=== PATIENT | female | born 1950 | race Caucasian/White ===

== ENCOUNTER → 2017-05-11 | Outpatient (CLI) | payer MEDICARE, BC ==
[~2017-05-11] MED LIST: ASPIRIN E.C. 8181 MG PO; CALCIUM 600MG+D1 TAB PO; CALCIUM600 M1 PO; CARDI-OMEGA1000 MG PO; FISH OIL1000 MG PO; FOLIC ACID 40400 MCG PO; GLUCOSAMINE MSM1 TAB PO; IRON65 M1 PO; LODINE 300300 MG/CAP PO; LUTEIN20 M1 PO; MULTIVITAMIN FO1 CAP PO; NORCO 325 MG-7.1 TAB PO; PRINZIDE 12.5 M1 TA1 PO; ROSE HIP PO; ROXICODONE 55 MG/TAB PO; VITAMIN B121000 MC2 SL; VITAMIN B122500 MCG SL; VITAMIN C PUR1000 MG PO; VITAMIN D31000 IU PO; VITAMINC1000TA PO; XARELTO10 MG PO
== END ==
LOC: COL.PUL 07:41
DX: C34.31 Malignant neoplasm of lower lobe, right bronchus or lung (principal)

== ENCOUNTER → 2018-08-01 | Outpatient (CLI) | payer MEDICARE, BC | LOC: COL.RAD 10:56 | DX: E04.1 Nontoxic single thyroid nodule (principal) ==

== ENCOUNTER 2023-01-18 07:04 | Day surgery (SDC) | payer MEDICARE, BC ==
[2023-01-18] VITALS (16 sets, daily range): BP systolic 87–135; BP diastolic 50–86; PULSE 78–106; TEMP 97.6–98.3
[~2023-01-18] VITALS: Ht 172.7 cm; Wt 89.6 kg
[2023-01-18] MEDS ORDERED: INVIGOFLEX D1500 MG PO (08:58)
[2023-01-18] MEDS ORDERED: LIPITOR20 MG PO (08:59)
[2023-01-18] MEDS ORDERED: VOLTAREN 50MG T50 MG PO (09:01)
[2023-01-18] MEDS ORDERED: PRINIVIL5 MG PO (09:01)
[2023-01-18] MEDS ORDERED: GLUCOSAMIN 500 PO (09:05)
[2023-01-18] MEDS ORDERED: PHARMASSURE ZIN50 MG PO (09:08)
[2023-01-18] MEDS ORDERED: MASON NATURAL2000 IU PO (09:08)
[2023-01-18] MEDS ORDERED: CALCIUM 600MG+D1 TAB PO (09:09)
[2023-01-18] MEDS ORDERED: THE MEDICINE S200 M2 PO (09:10)
[2023-01-18] MEDS ORDERED: B-121000 MCG PO (09:10)
[2023-01-18] MEDS ORDERED: ZYRTEC 10MG10 MG PO (09:10)
[2023-01-18] MEDS ORDERED: GLUCOSAMINE & C1 CA2 (09:14)
[2023-01-18] MEDS ORDERED: GLUCOSAMINE/CHO1 CA4 PO (09:14)
--- NOTE | 2023-01-18 09:17 | NUR ---
PATIENT AMBULATED TO BAY 2 AT 0732. ALERT AND ORIENTED X4. PATIENT STATED UNDERSTANDING OF PROCEDURE. CONSENTS SIGNED. ASSESSMENT COMPLETED. 18G IV STARTED BY SANAM ORO IN LEFT WRIST. LR INFUSING WITHOUT DIFFICUTLTIES. WARM BLANKET PROVIDED. NO FURTHER NEEDS NOTED AT THIS TIME. RESTING IN COT. CALL LIGHT IN REACH. AT BEDSIDE.
--- NOTE | 2023-01-18 13:22 | NUR ---
Patient arrived to the unit from pacu to room 331 alert and oriented. Lungs CTA, Bowel sound hypoactive. Pulses presents, patient does not feel sensation and moves legs as of yet. Cap refill brisk, Dressing with laura wrap to the right knee intact. No drainage noted. Patient oriented to the room and the use of call ballesteros for help. Family at the bedside. Call ballesteros in reach.
--- NOTE | 2023-01-18 15:03 | NUR ---
Patient has a soft B/P o f 87/50, denies lightheadedness, shortness of breath. IVF NS initiated by Doctor's orders at 100ml/hr.
--- NOTE | 2023-01-18 15:24 | NUR ---
Repiratory therapist Margaret notified of orders for incentive spirometer use and states she will bring one for patient.
--- NOTE | 2023-01-18 18:07 | NUR ---
Patient sitting in bed eating dinner, no issues with n/v. Patient states she's started having some sensation at bilateral lower extremities. Patient denies pain at this time.
--- NOTE | 2023-01-18 18:51 | NUR ---
Patient assisted to the bathroom to void. Patient tolerated it well and currently sitting at the edge of the bed placing puzzle. Patient denies pain at this time.
--- NOTE | 2023-01-18 20:45 | NUR ---
PT AMBULATING HALLS WITH X1 ASSIST
--- NOTE | 2023-01-18 21:00 | NUR ---
PT A&O X4 LAYING IN BED. VSS. DENYING ANY PAIN OR N/V. DRESSING & ACEWRAP TO RIGHT KNEE CDI. HEMOVAC TO COMPRESSION WITH BLOODY OUTPUT. IVF INFUSING TO LEFT WRIST. BED LOWERED & CALL LIGHT IN REACH. DENYING FURTHER NEEDS.
[2023-01-19 03:28] VITALS: BP 104/63; PULSE 100; TEMP 98.2
[2023-01-19 03:37] VITALS: BP_SYST 104
[2023-01-19 05:35] LABS: HEMOGLOBIN 12.4 g/dl (12.5-16.0)
[2023-01-19 05:57] LABS: CALCIUM 8.7 mg/dL (8.4-10.2); CREATININE, serum 0.69 mg/dL (0.57-1.11); POTASSIUM 4.5 mmol/L (3.5-4.5)
[2023-01-19 07:25] VITALS: BP 102/56; PULSE 92; TEMP 97.9
--- NOTE | 2023-01-19 08:29 | NUR ---
PT EATING BREAKFAST, VSS, LUNGS CTA, BOWEL SOUNDS PRESENT DRESSINGS TO RIGHT KNEE CDI. PT DENIES PAIN OR NEEDS AT THIS TIME.
[2023-01-19 09:11] VITALS: BP_SYST 102
--- NOTE | 2023-01-19 09:30 | NUR ---
Initial visit; Patient thanked [employer] for stopping though declined Spiritual Care stating she has a Jew home who are praying for her. [employer] Operator wished her well.
--- NOTE | 2023-01-19 10:15 | NUR ---
Tilesetter met with Patient at bedside to conduct Care Managment Assessment and discuss discharge planning. Patient lives with her in [place], [place] and is established with PCP Dr. Weems. Jero is covered by [facility] and [facility] for insurance an requests discharge medications be sent to [facility]. Patient denies the use of DME prior to admission and reports that she has OP PT scheduled at [facility]. Patient states that her DPOSHC is her . Discahrge Plan: Home with OP PT.
[2023-01-19 11:10] VITALS: BP 115/62; PULSE 94; TEMP 98.2
--- NOTE | 2023-01-19 12:42 | NUR ---
Received consult for malnutrition however per review of notes and discussion with RN, believe consult to be received in error. Patient does not appear to be at risk for malnutrition at this time.
[2023-01-19 13:01] VITALS: BP_SYST 115
[2023-01-19] MEDS ORDERED: CEPHALEXIN500 M1 PO (14:00)
[2023-01-19] MEDS ORDERED: PERCOCET 325 MG1 TA2 PO (14:00)
--- NOTE | 2023-01-19 15:34 | NUR ---
DISCHARGE INSTRUCTIONS REVIEWED WITH PT AND , QUESTIONS ANSWERED, PT LEFT UNIT PER WHEEL CHAIR.
== END 2023-01-19 15:35 | disposition home or self-care (01) ==
LOC: SDCO 07:04 → SURG 13:07 → SDCO 01-19 15:35
PROVIDERS: Orthopaedic Surgery
DX: M17.11 Unilateral primary osteoarthritis, right knee (principal); I10 Essential (primary) hypertension; Z87.891 Personal history of nicotine dependence; Z85.118 Personal history of other malignant neoplasm of bronchus and lung; Z79.899 Other long term (current) drug therapy
CPT/HCPCS: OP; C1713; C1776; J0665; J0690; J1580; J1885; J2250; J2270; J2704; J2795; J7030; J7120

== ENCOUNTER → 2023-01-26 | Outpatient (CLI) | payer MEDICARE, BC ==
[~2023-01-26] MED LIST changes: +B-121000 MCG PO; +CEPHALEXIN500 M1 PO; +GLUCOSAMIN 500 PO; +GLUCOSAMINE & C1 CA2; +GLUCOSAMINE/CHO1 CA4 PO; +INVIGOFLEX D1500 MG PO; +LIPITOR20 MG PO; +MASON NATURAL2000 IU PO; +PERCOCET 325 MG1 TA2 PO; +PHARMASSURE ZIN50 MG PO; +PRINIVIL5 MG PO; +THE MEDICINE S200 M2 PO; +VOLTAREN 50MG T50 MG PO; +ZYRTEC 10MG10 MG PO
== END ==
LOC: COL.RAD 09:35
DX: R60.0 Localized edema (principal); M79.604 Pain in right leg

== ENCOUNTER → 2023-07-20 | Outpatient (CLI) | payer MEDICARE, BC | LOC: COL.RAD 08:22 | DX: M25.561 Pain in right knee (principal) | CPT/HCPCS: A9503-JZ ==